=== PATIENT | male | born 1970 | race Asian ===

== ENCOUNTER 2025-06-05 20:51 | Emergency (ER) | payer OTHER ==
[2025-06-05 22:39] LABS: #Basophils 0.05 10x3/uL (0.0-0.2); #Eosinophils 0.05 10x3/uL (0.0-0.5); #Monocytes 0.55 10x3/uL (0.0-1.1); #Neutrophils 4.37 10x3/uL (1.5-8.4); %Basophils 0.8 % (0.0-2.0); %Eosinophils 0.8 % (0.0-6.0); %Lymphocytes 22.7 % (18.0-47.0); %Monocytes 8.4 % (0.0-10.0); %Neutrophils 67.1 % (40.0-75.0); Hematocrit 48.4 % (38.8-50.0); Hemoglobin 16.5 g/dL (13.5-17.5); Mean Corpuscular Hemoglobin 31.6 pg (27.0-33.0); Mean Corpuscular Volume 92.7 fL (81.2-95.1); Platelet Count 254 10x3/uL (150-450); Red Blood Cell (RBC) Count 5.22 10x6/uL (4.32-5.72); White Blood Cell (WBC) Count 6.51 10x3/uL (3.5-10.5)
[2025-06-05 22:51] LABS: ALT (SGPT) 52 U/L (Less than 45); AST (SGOT) 31 U/L (11-34); Albumin 5.2 g/dL (3.1-4.5); Alkaline Phosphatase 68 U/L (40-110); Anion Gap 14 mmol/L (10-20); BUN (Urea Nitrogen) 15 mg/dL (8.4-25.7); Bilirubin, Total 0.8 mg/dL (0.3-1.2); Calc. Creatinine Clearance 0 mL/min (70-130); Calcium 9.5 mg/dL (7.8-10.44); Carbon Dioxide 29 mmol/L (22-29); Chloride 103 mmol/L (98-107); Globulin 3.4 g/dL (2.4-3.5); Glucose 118 mg/dL (70-105); Potassium 4.5 mmol/L (3.5-5.1); Sodium 141 mmol/L (136-145)
[2025-06-05 22:58] LABS: Troponin I Less than 0.010 ng/mL (< 0.028)
== END 2025-06-06 00:21 | disposition home or self-care (01) ==
LOC: CSHERS 20:51
DX: E86.0 Dehydration (principal)
CPT/HCPCS: 36415; 71045; 80053; 83880; 84484; 85025; 93005